=== PATIENT | female | born 2000 ===

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

== ENCOUNTER 2018-06-22 12:04 | Inpatient (IN) ==
[2018-06-22] MEDS ORDERED: ACETAMINOPHEN 325 MG TABLET PO PRN (15:05)
[2018-06-22] MEDS ORDERED: KETOROLAC 10 MG TABLET PO PRN (15:05)
[2018-06-22] MEDS ORDERED: ONDANSETRON 4 MG/2 ML VIAL IV PRN (15:05)
[2018-06-22 15:42] LABS: Basophils % 0.3 % (0.0-0.8); Eosinophils # 0.1 10*3/uL (0.0-0.87); Eosinophils % 0.6 % (0.00-10.9); Hematocrit 39.6 VOL% (35.7-47.0); Hemoglobin 12.8 GM/DL (12.0-16.0); Immature Granulocytes % 0.4 %; Immature Granulocytes Absolute 0.06 #; Lymphocytes % 14.3 % (21.3-54.2); Mean Corpuscular HGB Conc 32.3 GM/DL (32-36); Mean Corpuscular Hemoglobin 30 PG (27-34); Mean Corpuscular Volume 91.7 FL (87-102); Mean Platelet Volume 10.2 FL (9.6-12.0); Monocytes # 0.8 10*3/uL (0.11-0.8); Monocytes % 6.1 % (1.7-12.7); Neutrophils # 10.7 10*3/uL (1.4-7.4); Neutrophils % 78.3 % (38.7-73.9); Platelet Count 265 T/CUMM (130-400); Red Blood Count 4.32 MC/CUMM (3.8-5.5); Red Cell Distribution Width 12.3 % (9.3-17.3); White Blood Count 13.7 T/CUMM (4-12)
[2018-06-22 15:56] LABS: Apearance,Urine Slightly Hazy (Clear); Bilirubin,Urine Negative (Negative); Blood, Urine Negative (Negative); Glucose,Urine (UA) Negative (Negative); Ketones,Urine Negative (Negative); Mucus,Urine Occasional /LPF (Occasional); Nitrite,Urine Negative (Negative); Protein,Urine Negative; RBC,Urine 2 /HPF (0-4); Squamous Epithelial Cell,Urine Occasional /HPF (0-10); Urine Color Yellow (Yellow); Urine Specific Gravity 1.017 (1.001-1.035); Urine Urobilinogen < 2.0 EU/DL (0.2-1.0); WBC,Urine 9 /HPF (0-6)
[2018-06-22 15:58] LABS: Barbiturates Screen,Urine Negative (Negative); Benzodiazepines Screen,Urine Negative (Negative); Cannabinoid Screen,Urine Negative (Negative); Opiate Screen,Urine Negative (Negative); Phencyclidine Screen,Urine Negative (Negative)
[2018-06-22 16:02] LABS: Alanine Aminotransferase 13 U/L (13-56); Alkaline Phosphatase 57 U/L (45-117); Aspartate Amino Transferase 12 U/L (0-37); Bilirubin,Total < 0.39 MG/DL (0.2-1.0); Blood Urea Nitrogen 8 MG/DL (7-18); Calcium 8.2 MG/DL (8.5-10.1); Glucose 90 MG/DL (74-106); Osmolality,Calculated 274.5 MOS/KG (273-304); Potassium 3.8 MMOL/L (3.5-5.1); Sodium 139 MMOL/L (136-145); Total Protein 6.6 G/DL (6.4-8.3)
[2018-06-22] MEDS: LACTATED RINGERS 1,000 ML IV SCH (20:46)
[2018-06-22] MEDS: PANTOPRAZOLE 40 MG TABLET PO SCH (20:53)
[2018-06-22] MEDS: PIPERACILLIN/TAZOBACTAM 3,375 MG in SODIUM CHLORIDE 0.9% 100 ML IV SCH (20:53)
[2018-06-23] MEDS: PIPERACILLIN/TAZOBACTAM 3,375 MG in SODIUM CHLORIDE 0.9% 100 ML IV SCH ×3 (03:17→20:15)
[2018-06-23 05:40] LABS: Basophils # 0.1 10*3/uL (0.0-0.2); Basophils % 0.4 % (0.0-0.8); Eosinophils # 0.1 10*3/uL (0.0-0.87); Eosinophils % 0.9 % (0.00-10.9); Hematocrit 36.4 VOL% (35.7-47.0); Hemoglobin 11.9 GM/DL (12.0-16.0); Immature Granulocytes % 0.7 %; Immature Granulocytes Absolute 0.09 #; Lymphocytes # 2.5 10*3/uL (1.4-4.0); Lymphocytes % 18.4 % (21.3-54.2); Mean Corpuscular HGB Conc 32.7 GM/DL (32-36); Mean Corpuscular Hemoglobin 30 PG (27-34); Mean Corpuscular Volume 91.9 FL (87-102); Mean Platelet Volume 10.2 FL (9.6-12.0); Monocytes % 7.6 % (1.7-12.7); Neutrophils # 9.6 10*3/uL (1.4-7.4); Platelet Count 267 T/CUMM (130-400); Red Blood Count 3.96 MC/CUMM (3.8-5.5); Red Cell Distribution Width 12.3 % (9.3-17.3); White Blood Count 13.3 T/CUMM (4-12)
[2018-06-23 06:10] LABS: Calcium 7.9 MG/DL (8.5-10.1); Osmolality,Calculated 279.3 MOS/KG (273-304); Potassium 3.6 MMOL/L (3.5-5.1)
[2018-06-23] MEDS ORDERED: VANCOMYCIN 1,000 MG VIAL ONE (10:05)
[2018-06-23] MEDS: VANCOMYCIN INJ 1,000 MG in SODIUM CHLORIDE 0.9% 250 ML IV SCH ×2 (10:11→17:42)
[2018-06-23] MEDS ORDERED: LIDOCAINE 1%/EPI INJ 20 ML VIAL ONE (10:32)
[2018-06-23] MEDS ORDERED: diphenhydrAMINE 50 MG/1 ML VIAL ONE (12:17)
[2018-06-23] MEDS ORDERED: PROPOFOL 200 MG/20 ML VIAL IV ONE (12:25)
[2018-06-23] MEDS ORDERED: SEVOFLURANE 1 UNIT/15 MINUTE INH ONE (12:25)
[2018-06-23] MEDS ORDERED: ONDANSETRON 4 MG/2 ML VIAL ONE (12:26)
[2018-06-23] MEDS ORDERED: MIDAZOLAM 2 MG/2 ML VIAL ONE (12:26)
[2018-06-23] MEDS ORDERED: fentaNYL 100 MCG/2 ML VIAL ONE (12:26)
[2018-06-23] MEDS ORDERED: diphenhydrAMINE 50 MG/1 ML VIAL IV ONE (12:42)
[2018-06-23] MEDS: HYDROmorphone 2 MG/1 ML VIAL IV PRN (13:36)
[2018-06-23] MEDS: LACTATED RINGERS 1,000 ML IV SCH (13:38)
[2018-06-23] MEDS: PANTOPRAZOLE 40 MG TABLET PO SCH (13:56)
[2018-06-23] MEDS: diphenhydrAMINE CAP 25 MG CAPSULE PO PRN (17:19)
[2018-06-24] MEDS: diphenhydrAMINE CAP 25 MG CAPSULE PO PRN (00:40)
[2018-06-24] MEDS: VANCOMYCIN INJ 1,000 MG in SODIUM CHLORIDE 0.9% 250 ML IV SCH ×2 (01:42→09:58)
[2018-06-24] MEDS: PIPERACILLIN/TAZOBACTAM 3,375 MG in SODIUM CHLORIDE 0.9% 100 ML IV SCH ×2 (05:44→12:16)
[2018-06-24] MEDS: LACTATED RINGERS 1,000 ML IV SCH (07:07)
[2018-06-24] MEDS: PANTOPRAZOLE 40 MG TABLET PO SCH (09:46)
[2018-06-24] MEDS: HYDROmorphone 2 MG/1 ML VIAL IV PRN (10:07)
[2018-06-24 12:49] VITALS: BP 102/74
== END 2018-06-24 15:37 | disposition home or self-care (01) | DRG 585 ==
LOC: N.ED 12:04 → N.EDINP 15:05 → N.5E 18:05
PROVIDERS: ADMIT Surgery; ATTEND Surgery